=== PATIENT | male | born 1995 | race Hispanic/Latino ===

== ENCOUNTER 2021-06-06 12:59 | Emergency (ER) | payer MEDICARE ==
[~2021-06-06] VITALS: Ht 167.6 cm; Wt 190.5 kg
[2021-06-06] MEDS ORDERED: SODIUM CHLORIDE 0.9% 1000ML 1,000 ML IV STA (13:37)
[2021-06-06 13:55] LABS: BASOPHILS # (AUTO) 0.1 (0.0-0.1); BASOPHILS % 0.6 % (0.0-1.0); EOSINOPHILS # (AUTO) 0.2 (0.0-0.4); HEMATOCRIT 46.2 % (38.2-49.6); HEMOGLOBIN 14.8 g/dL (14.0-18.0); LYMPHOCYTES # (AUTO) 2.1 (1.0-3.2); LYMPHOCYTES % 10.6 % (18.0-39.1); MEAN CORPUSCULAR HEMOGLOBIN 28.6 pg (28-32); MEAN CORPUSCULAR VOLUME 89.2 fL (81-99); MONOCYTES # (AUTO) 1.3 (0.2-0.8); MONOCYTES % 6.8 % (4.4-11.3); NEUTROPHILS # (AUTO) 15.5 (2.1-6.9); PLATELET COUNT 252 x10e3/uL (140-360); RED BLOOD COUNT 5.18 x10e6/uL (4.3-5.7); RED CELL DISTRIBUTION WIDTH 13.3 % (11.7-14.4)
[2021-06-06 14:19] LABS: PROTHROMBIN TIME 13.4 seconds (11.9-14.5)
[2021-06-06 14:20] LABS: PARTIAL THROMBOPLASTIN TIME 22.2 seconds (23.8-35.5)
[2021-06-06 14:27] LABS: ALBUMIN/GLOBULIN RATIO 0.9 (0.8-2.0); ANION GAP 15.7 mmol/L (8-16); CALCIUM 9.6 mg/dL (8.4-10.2); CREATININE, SERUM 2.32 mg/dL (0.72-1.25); POTASSIUM 3.7 mmol/L (3.5-5.1)
[2021-06-06 14:33] LABS: CREATINE KINASE MB 1.7 ng/mL (0-5.0)
[2021-06-06 16:00] VITALS: BP 124/77
== END 2021-06-06 16:03 | disposition left against medical advice (07) ==
LOC: ER 13:15
DX: R42 Dizziness and giddiness (principal); R57.9 Shock, unspecified; R06.02 Shortness of breath; E86.0 Dehydration
CPT/HCPCS: 36415; 71045; 80053; 82550; 82553; 83880; 84484; 85025; 85610; 85730; 93005; 99284